=== PATIENT | male | born 2000 | race Caucasian/White ===

== ENCOUNTER 2024-09-01 14:16 | Emergency (ER) | payer MEDICAID ==
[~2024-09-01] VITALS: Ht 170.2 cm; Wt 70.0 kg
[2024-09-01 14:26] VITALS: O2SAT 99
[2024-09-01 15:47] LABS: HEMATOCRIT. 42.3 % (42.0-52.0); MEAN CORPUSCULAR HEMOGLOBIN 30.6 pg (28.0-32.0); MEAN CORPUSCULAR HGB CONC 33.2 g/dL (31.0-37.0); MEAN CORPUSCULAR VOLUME 92.1 fL (80.0-94.0); MEAN PLATELET VOLUME 8.8 fl (7.4-10.4); PLATELET 277 x1000/uL (130-400); RED BLOOD CELL COUNT 4.59 mill/uL (4.7-6.1); RED CELL DISTRIBUTION WIDTH 14.2 % (11.6-14.6); WHITE BLOOD COUNT 10.1 x1000/uL (4.5-11.0)
[2024-09-01 15:48] LABS: CHLORIDE 105 mEq/L (98-107); POTASSIUM 3.8 mEq/L (3.5-5.1); SODIUM 138 mEq/L (136-145)
[2024-09-01 15:49] LABS: CALCIUM 9.2 mg/dL (8.7-10.4); CARBON DIOXIDE 25 mEq/L (21-32)
[2024-09-01 15:50] LABS: DIFFERENTIAL COMMENT 1
[2024-09-01 15:54] LABS: CREATININE 0.8 mg/dL (0.6-1.3); GLUCOSE 87 mg/dL (70-105); UREA NITROGEN BLOOD 13 mg/dL (9-23)
[2024-09-01 15:56] LABS: ALANINE AMINOTRANSFERASE 22 IU/L (10-49); ALBUMIN 3.9 g/dL (3.2-4.8); ASPARTATE AMINOTRANSFERASE 16 IU/L (<34)
[2024-09-01 15:57] LABS: BILIRUBIN TOTAL 0.8 mg/dL (0.1-1.0); PROTEIN TOTAL 6.5 g/dL (6.0-8.3)
[2024-09-01 17:27] LABS: PLATELET ESTIMATE NORMAL
[2024-09-01] MEDS: ONDANSETRON HCL 4MG/2ML INJ IV SCH (19:15)
[2024-09-01] MEDS: ONDANSETRON HCL 4MG/2ML INJ IV ONE (19:18)
[2024-09-01] MEDS: SODIUM CHLORIDE 0.9% 1,000 ML IV ONE (19:18)
[2024-09-01] MEDS ORDERED: LOPE2CAP MT (21:03)
[2024-09-01] MEDS ORDERED: ONDA-239 PO (21:03)
[2024-09-01 21:50] VITALS: BP 124/72; PULSE 84; RESP 19; TEMP 36.78072; O2SAT 100
== END 2024-09-01 21:50 | disposition home or self-care (01) ==
LOC: ER 14:16
DX: R19.7 Diarrhea, unspecified (principal); R11.2 Nausea with vomiting, unspecified
CPT/HCPCS: 80053; 85025; 36415; 96361; 96374; 99283; J2405; J7030; Z7610